=== PATIENT | male | born 1955 | race African-American/Black ===

== ENCOUNTER 2025-03-28 06:59 | Day surgery (SDC) | payer OTHER ==
[2025-03-25 12:53] VITALS: BMI 30.1
[2025-03-28] MEDS ORDERED: LIDOCAINE HCL 1%, 10 MG/ML (20ML VIAL) ONE (09:28)
[2025-03-28] MEDS ORDERED: PROPOFOL 20 ML ONE (09:30)
[2025-03-28] MEDS ORDERED: MIDAZOLAM HCL 2 MG/2 ML SINGLE DOSE VIAL ONE (09:30)
[2025-03-28] MEDS ORDERED: DEXTROSE 5%-0.45% SALINE 1,000 ML IV SCH (09:30)
[2025-03-28] MEDS ORDERED: LIDOCAINE HCL 2% 100 MG/5 ML DISP.SYRIN ONE (09:30)
[2025-03-28] MEDS ORDERED: DEXAMETHASONE SOD PHOSPHATE 4 MG/1 ML VIAL ONE (09:32)
[2025-03-28] MEDS ORDERED: ONDANSETRON 4 MG/2 ML VIAL ONE (09:32)
[2025-03-28] MEDS ORDERED: ceFAZolin SODIUM 1 GM VIAL ONE (09:32)
[2025-03-28] MEDS: ceFAZolin SODIUM 1 GM VIAL IVPB ONE ×2 (09:53)
[2025-03-28] MEDS: LIDOCAINE HCL 1%, 10 MG/ML (20ML VIAL) INF ONE ×2 (09:59)
[2025-03-28] MEDS ORDERED: ONDANSETRON 4 MG/2 ML VIAL IVPUSH PRN (10:07)
[2025-03-28] MEDS ORDERED: LACTATED RINGERS SOLUTION 1,000 ML IV SCH (10:15)
[2025-03-28] MEDS: ACETAMINOPHEN INJECTION 100 ML ONE (11:30)
[2025-03-28] MEDS: ACETAMINOPHEN 1000 MG/100 ML BAG IVPB ONE (11:30)
[2025-03-28 12:20] VITALS: TEMP 97.6
[2025-03-28 13:28] VITALS: BP 120/72; PULSE 81; RESP 19
== END 2025-03-28 13:22 | disposition home or self-care (01) ==
LOC: JASU-SURG 06:59
PROVIDERS: ATTEND Urology
PROC: 0VTTXZZ Resection of Prepuce, External Approach (ICD-10-PCS; 2025-03-28)
PROC: 0VTTXZZ Resection of Prepuce, External Approach (ICD-10-PCS; principal; 2025-03-28 09:00)
DX: N48.1 Balanitis (principal); N47.1 Phimosis
CPT/HCPCS: 82962; 88304-TC; 94760